=== PATIENT | female | born 2000 | race Caucasian/White ===

== ENCOUNTER 2020-05-06 19:36 | Emergency (ER) | payer MEDICAID ==
[~2020-05-06] VITALS: Ht 157.5 cm; Wt 70.3 kg
--- NOTE | 2020-05-06 21:10 | NUR ---
pt to room from lobby
[2020-05-06 21:39] VITALS: BP 128/76
[2020-05-06] MEDS ORDERED: KETOROLAC 30 MG/1 ML IM ONE (22:00)
[2020-05-06] MEDS ORDERED: KETOROLAC 30 MG/1 ML ONE (22:06)
== END 2020-05-06 22:37 | disposition home or self-care (01) ==
LOC: ED 22:10
DX: S63.617A Unspecified sprain of left little finger, initial encounter (principal); S60.052A Contusion of left little finger without damage to nail, initial encounter; X58.XXXA Exposure to other specified factors, initial encounter; Y93.79 Activity, other specified sports and athletics; Y92.321 Football field as the place of occurrence of the external cause; Y99.8 Other external cause status
CPT/HCPCS: 29130; 73130; 96372; 99283; J1885